=== PATIENT | female | born 1990 | race Caucasian/White ===

== ENCOUNTER 2017-01-17 09:25 | Emergency (ER) | payer BC, OTHER ==
[~2017-01-17] VITALS: Ht 170.2 cm; Wt 58.1 kg
[~2017-01-17 09:25] MED LIST: DCS100C PO; FLINTSTONE1 TAB.CHE4 PO; HYDR-3720 PO; Ibuprofen PO
--- NOTE | 2017-01-17 10:37 | ED Neck-Back Pain/Injury ---
General Chief Complaint: Head/Cervical Problems Stated Complaint: NECK AND SHOULDER PAIN Nursing Triage Note: ARRIVED VIA AMB TO ROOM 05. STATES SHE WOKE UP YESTERDAY WITH LEFT SIDED NECK PAIN AND TODAY SHE IS HAVING LEFT ARM PAIN WITH IT. HAS TAKEN TYLENOL FOR THE PAIN. STATES SHE IS 24 WEEKS GESTATION. Nursing Sepsis Screen: No Definite Risk Source of Information: Patient Exam Limitations: No Limitations History of Present Illness Time Seen by Provider: 10:00 Initial Comments Here with report of right-sided neck pain that starts at the right shoulder blade and goes to the neck and right shoulder. Started yesterday morning when she woke up. Has persisted and worsened since. Difficulty with turning her head due to the muscle tightness on the right side of her neck. She is approximately 24 weeks . Tylenol was not helping. She does not know what else to do. Denies specific recent injury but she does have 3 children that she has to lift quite a bit. Also reports that she's had some musculoskeletal pelvic pain related to recently and was considering physical therapy for that per her primary care physician. Timing/Duration: 1-2 Days Severity: Moderate Pain/Injury Location: Back, Upper Extremity, Neck Method of Injury: Unknown Associated Symptoms: muscle spasms, No fever, No weakness, No sensory/motor loss, No lower back pain, No loss of bladder control Allergies and Home Medications Allergies Coded Allergies: latex (Unverified Allergy, Unknown, RASH, 12/15/13) morphine (Verified Adverse Reaction, Unknown, N/V, 01/17/17) Home Medications No Active Prescriptions or Reported Meds Constitutional: see HPI Respiratory: no symptoms reported Cardiovascular: no symptoms reported Gastrointestinal: no symptoms reported Musculoskeletal: see HPI, back pain, muscle pain, muscle stiffness, No muscle weakness Skin: no symptoms reported Psychiatric/Neurological: No Symptoms Reported All Other Systems Reviewed Negative Unless Noted: Yes Past Jksgtbc-Emfspk-Ztfkra Hx Patient Social History Alcohol Use: Denies Use Recreational Drug Use: No Smoking Status: Never a Smoker Recent Foreign Travel: No Contact w/Someone Who Travel: No Recent Infectious Disease Expo: No Immunizations Up To Date Tetanus Booster (TDap): Less than 5yrs PED Vaccines UTD: No Surgeries HX Surgeries: Yes Surgeries: Section Respiratory Hx Respiratory Disorders: No Cardiovascular Hx Cardiac Disorders: No Neurological Hx Neurological Disorders: No Reproductive System Hx Reproductive Disorders: No Sexually Transmitted Disease: No HIV/AIDS: No Female Reproductive Disorders: Denies Genitourinary Hx Genitourinary Disorders: No Gastrointestinal Hx Gastrointestinal Disorders: No Musculoskeletal Hx Musculoskeletal Disorders: No Endocrine Hx Endocrine Disorders: No HEENT HX ENT Disorders: No Loss of Vision: Denies Cancer Hx Cancer: No Psychosocial Hx Psychiatric Problems: Yes (hx of pp depression) Behavioral Health Disorders: Anxiety, Depression Integumentary HX Skin/Integumentary Disorder: No Blood Transfusions Hx Blood Disorders: No Adverse Reaction to a Blood Tr: No Reviewed Nursing Assessment Reviewed/Agree w Nursing PMH: Yes Family Medical History Significant Family History: No Pertinent Family Hx Family Medial History: Patient reports no known family medical history. Physical Exam Vital Signs Vital Sign - Last 12Hours 01/17/17 09:35 Temp 98.0 Pulse 89 Resp 16 B/P (MAP) 130/82 Pulse Ox 100 Capillary Refill : Less Than 3 Seconds General Appearance: No Apparent Distress, WD/WN Neck: Limited Range of Motion, No Lymphadenopathy (L), No Lymphadenopathy (R), Tender Lateral, No Tender Midline Cardiovascular: Regular Rate, Rhythm, No Murmur Respiratory: Lungs Clear, Normal Breath Sounds Gastrointestinal: Non Tender, Soft, Other (gravid to the level above the umbilicus) Back: Muscle Spasm (between the right shoulder blade and the spine. Spasm extends up along the lateral aspect of the right side of the spine to the neck and to the right shoulder), No Vertebral Tenderness Extremity: Normal Inspection, Normal Range of Motion, Non Tender, Pelvis Stable , Other (bilateral senior support analyst strength equal and strong. Sensation intact bilateral hands. pulses and circulation intact in bilateral distal upper extremities.) Neurologic/Psychiatric: Alert, Oriented x3, No Motor/Sensory Deficits Skin: Normal Color, Warm/Dry Progress/Results/Core Measures Results/Orders Vital Signs/I&O Vital Sign - Last 12Hours 01/17/17 09:35 Temp 98.0 Pulse 89 Resp 16 B/P (MAP) 130/82 Pulse Ox 100 Blood Pressure Mean: 98 Progress Note : Progress Note Seen and evaluated. I did discuss the case with Dr. Adonay Martins related to physical therapy. He will be happy to see the patient in referral. Referral written after discussion with Dr. Collins, patient's primary computer systems security analyst. He agrees with referral. Patient's very happy with referral. Discharged home with return precautions. Patient and family verbalize understanding instructions and agreement with plan. Departure Impression Impression: Primary Impression: Neck sprain Qualified Codes: S13.9XXA - Sprain of joints and ligaments of unspecified parts of neck, initial encounter Additional Impression: Pelvic pain affecting Qualified Codes: O26.892 - Other specified related conditions, second trimester; R10.2 - Pelvic and perineal pain Disposition: 01 HOME, SELF-CARE Condition: Improved Departure-Patient Inst. Decision time for Depature: 10:36 Referrals: ELIZA GAO (PCP/Family) Primary Care Physician Patient Instructions: Neck Sprain (DC) Add. Discharge Instructions: All discharge instructions reviewed with patient and/or family. Voiced understanding. Go to the physical therapy building for evaluation related to the neck strain and the pelvic pain. Follow-up with your OB doctor this week for recheck and further evaluation. Return for worse pain, fever, vomiting, weakness, breathing problems or other concerns as needed. Scripts No Active Prescriptions or Reported Meds Copy Copies To 1: ADONAY MARTINS PT,ATC Copies To 2: XOCHILT COLLINS MD, TIMOTHY D MD Jan 17, 2017 10:37
[2017-01-17 10:45] VITALS: BP 130/82
== END 2017-01-17 10:45 | disposition home or self-care (01) ==
LOC: EDUNIT# 09:25 → ER 09:29
DX: O9A.212 Injury, poisoning and certain other consequences of external causes complicating pregnancy, second trimester (principal); S13.9XXA Sprain of joints and ligaments of unspecified parts of neck, initial encounter; O26.892 Other specified pregnancy related conditions, second trimester; R10.2 Pelvic and perineal pain; O99.342 Other mental disorders complicating pregnancy, second trimester; F41.9 Anxiety disorder, unspecified; F32.9 Major depressive disorder, single episode, unspecified; Z3A.24 24 weeks gestation of pregnancy; Z87.59 Personal history of other complications of pregnancy, childbirth and the puerperium; X58.XXXA Exposure to other specified factors, initial encounter
CPT/HCPCS: 99282

== ENCOUNTER 2017-04-12 12:45 | Outpatient (CLI) | payer BC, MEDICAID ==
[~2017-04-12] VITALS: Ht 170.2 cm; Wt 73.9 kg
[2017-04-12] MEDS ORDERED: URSO300C3 PO (12:58)
[2017-04-12 13:00] VITALS: BP 110/68
== END 2017-04-12 14:17 | disposition home or self-care (01) ==
LOC: PREOP 12:45
PROVIDERS: ATTEND Obstetrics & Gynecology
DX: O34.219 Maternal care for unspecified type scar from previous cesarean delivery (principal); Z3A.00 Weeks of gestation of pregnancy not specified
CPT/HCPCS: 87081

== ENCOUNTER 2017-04-15 21:15 | Outpatient (CLI) | payer BC, MEDICAID ==
[~2017-04-15] VITALS: Ht 170.2 cm; Wt 74.0 kg
[~2017-04-15 21:15] MED LIST changes: +URSO300C3 PO
[2017-04-15 21:45] VITALS: BP 122/61
[2017-04-15 21:47] LABS: BILIRUBIN,URINE NEGATIVE (NEGATIVE); KETONES,URINE 4+ (NEGATIVE); LEUKOCYTE ESTERASE ,URINE 1+ (NEGATIVE); NITRITE,URINE NEGATIVE (NEGATIVE); PH,URINE 6 (5-9); PROTEIN,URINE NEGATIVE (NEGATIVE); UROBILINOGEN,URINE NORMAL (NORMAL)
[2017-04-15 23:50] VITALS: BP 123/59
--- NOTE | 2017-04-17 08:11 | Physician Query-Final Dx ---
BOLA CONDE 04/17/17 0811: Clinic Account Progress/Dx Physician Query: Please give diagnosis Date of Service Apr 15, 2017 at 21:15 VIRY SPENCER DO 05/02/17 1053: Clinic Account Progress/Dx DIAGNOSIS: Diagnosis threatened labor at term ELTON,BOLA Apr 17, 2017 08:11 VIRY SPENCER DO May 02, 2017 10:53
[2017-04-18] MEDS ORDERED: OXYC-465 PO (07:34)
[2017-04-18] MEDS ORDERED: DOCU100C37 PO (07:34)
[2017-04-18] MEDS ORDERED: IBUP-1780 PO (07:34)
== END 2017-04-16 00:43 | disposition home or self-care (01) ==
LOC: WSo 21:15 → LDRP 21:15 → WSo 04-16 00:43
PROVIDERS: ATTEND Obstetrics & Gynecology
DX: O47.03 False labor before 37 completed weeks of gestation, third trimester (principal); O34.219 Maternal care for unspecified type scar from previous cesarean delivery; Z3A.36 36 weeks gestation of pregnancy
CPT/HCPCS: 81000; 87088; 99213

== ENCOUNTER 2018-08-21 11:26 | Emergency (ER) | payer SELFPAY ==
[~2018-08-21] VITALS: Ht 165.1 cm; Wt 59.0 kg
[~2018-08-21 11:26] MED LIST changes: +CEPH500T PO; +DOCU100C37 PO; +IBUP-1780 PO; +NITR-65 PO; +OXYC-465 PO; +PHEN-639 PO; +PREN1TAB39 PO
[2018-08-21 11:49] VITALS: BP 104/67
--- OUTSIDE RECORDS SUMMARY | 2018-08-21 12:46 | XMS REPORT | Continuity of Care Document ---
Author Author [facility] Address Unknown Phone Unavailable Allergies Active Description Code Type Severity Reaction Onset Reported/Identified Relationship to Patient Clinical Status Yes Latax OA N/A N/A 04/28/2011 Yes Latax OA 04/28/2011 Yes morphine Drug Allergy N/A N/A 08/15/2012 Yes morphine Drug Allergy 08/15/2012 Yes latex [id number] Drug Allergy Unknown RASH 12/15/2013 Yes morphine [id number] Drug Allergy Unknown N/V 01/17/2017 Yes latex [id number] Drug Allergy Mild RASH 04/12/2017 Yes morphine [id number] Drug Allergy Mild HIVES/VOMITTING 04/12/2017 Medications There is no data. Problems Date Dx Coded Attending Type Code Diagnosis Diagnosed By 04/07/2009 309.81 AN PTSD 04/07/2009 VELASQUEZ SARAVIA DO 309.81 AN PTSD 04/07/2009 309.81 AN PTSD 04/07/2009 AYAAN SANNA OGDEN 309.81 AN PTSD 04/07/2009 SKY BANKS MD 309.81 AN PTSD 04/07/2009 SKY BANKS MD 309.81 AN PTSD 04/07/2009 PRABHU CABRERA APRN A 309.81 AN PTSD 04/08/2010 300.01 AN PANIC DIS W/O AGORA 04/08/2010 309.0 AD ADJ D/O W DEPRESSED 04/08/2010 VELASQUEZ SARAVIA DO 300.01 AN PANIC DIS W/O AGORA 04/08/2010 VELASQUEZ SARAVIA DO 309.0 AD ADJ D/O W DEPRESSED 04/08/2010 300.01 AN PANIC DIS W/O AGORA 04/08/2010 309.0 AD ADJ D/O W DEPRESSED 04/08/2010 AYAAN SANNA OGDEN 300.01 AN PANIC DIS W/O AGORA 04/08/2010 AYAAN SANNA OGDEN 309.0 AD ADJ D/O W DEPRESSED 04/08/2010 SKY BANKS MD 300.01 AN PANIC DIS W/O AGORA 04/08/2010 SKY BANKS MD 309.0 AD ADJ D/O W DEPRESSED 04/08/2010 SKY BANKS MD 300.01 AN PANIC DIS W/O AGORA 04/08/2010 SKY BANKS MD 309.0 AD ADJ D/O W DEPRESSED 04/08/2010 PRABHU CABRERA APRN A 300.01 AN PANIC DIS W/O AGORA 04/08/2010 PRABHU CABRERA APRN A 309.0 AD ADJ D/O W DEPRESSED 05/18/2010 V65.11 NEW MOMMY VISIT 05/18/2010 VELASQUEZ SARAVIA DO V65.11 NEW MOMMY VISIT 05/18/2010 V65.11 NEW MOMMY VISIT 05/18/2010 [facility], [place] V65.11 NEW MOMMY VISIT 05/18/2010 SKY BANKS MD V65.11 NEW MOMMY VISIT 05/18/2010 SKY BANKS MD V65.11 NEW MOMMY VISIT 05/18/2010 PRBAHU CABRERA APRN A V65.11 NEW MOMMY VISIT 07/27/2010 300.02 AN GEN ANXIETY 07/27/2010 VELASQUEZ SARAVIA DO 300.02 AN GEN ANXIETY 07/27/2010 300.02 AN GEN ANXIETY 07/27/2010 [facility], SANNA R 300.02 AN GEN ANXIETY 07/27/2010 SKY BANKS MD 300.02 AN GEN ANXIETY 07/27/2010 SKY BANKS MD 300.02 AN GEN ANXIETY 07/27/2010 PRABHU CABRERA APRN A 300.02 AN GEN ANXIETY 03/23/2011 V25.12 ENCOUNTER FOR REMOVAL OF INTRAUTERINE CONTRACEPTIVE DEVICE 03/23/2011 VELASQUEZ SARAVIA DO V25.12 ENCOUNTER FOR REMOVAL OF INTRAUTERINE CONTRACEPTIVE DEVICE 03/23/2011 V25.12 ENCOUNTER FOR REMOVAL OF INTRAUTERINE CONTRACEPTIVE DEVICE 03/23/2011 [facility], [place] V25.12 ENCOUNTER FOR REMOVAL OF INTRAUTERINE CONTRACEPTIVE DEVICE 03/23/2011 SKY BANKS MD V25.12 ENCOUNTER FOR REMOVAL OF INTRAUTERINE CONTRACEPTIVE DEVICE 03/23/2011 SKY BANKS MD V25.12 ENCOUNTER FOR REMOVAL OF INTRAUTERINE CONTRACEPTIVE DEVICE 03/23/2011 PRABHU CABRERA APRN V25.12 ENCOUNTER FOR REMOVAL OF INTRAUTERINE CONTRACEPTIVE DEVICE 04/28/2011 462 PHARYNGITIS 04/28/2011 788.1 pain during urination (dysuria) 04/28/2011 VELASQUEZ SARAVIA DO 462 PHARYNGITIS 04/28/2011 VELASQUEZ SARAVIA DO 788.1 pain during urination (dysuria) 04/28/2011 462 PHARYNGITIS 04/28/2011 788.1 pain during urination (dysuria) 04/28/2011 [facility]IS 04/28/[facility] 788.1 pain during urination (dysuria) 04/28/2011 SKY BANKS MD 462 PHARYNGITIS 04/28/2011 SKY BANKS MD 788.1 pain during urination (dysuria) 04/28/2011 SKY BANKS MD 462 PHARYNGITIS 04/28/2011 SKY BANKS MD 788.1 pain during urination (dysuria) 04/28/2011 PRABHU CABRERA APRN 462 PHARYNGITIS 04/28/2011 PARBHU CABRERA APRN 788.1 pain during urination (dysuria) 06/01/2011 465.9 UPPER RESPIRATORY INFECTION 06/01/2011 VELASQUEZ SARAVIA DO 465.9 UPPER RESPIRATORY INFECTION 06/01/2011 465.9 UPPER RESPIRATORY INFECTION 06/01/2011 [facility] 465.9 UPPER RESPIRATORY INFECTION 06/01/2011 SKY BANKS MD 465.9 UPPER RESPIRATORY INFECTION 06/01/2011 SKY BANKS MD 465.9 UPPER RESPIRATORY INFECTION 06/01/2011 PRABHU CABRERA APRN A 465.9 UPPER RESPIRATORY INFECTION 07/21/2011 112.1 CANDIDIASIS VAGINAL 07/21/2011 599.0 URINARY TRACT INFECTION 07/21/2011 VELASQUEZ SARAVIA DO 112.1 CANDIDIASIS VAGINAL 07/21/2011 VELASQUEZ SARAVIA DO 599.0 URINARY TRACT INFECTION 07/21/2011 112.1 CANDIDIASIS VAGINAL 07/21/2011 599.0 URINARY TRACT INFECTION 07/21/2011 [facility], SANNA R 112.1 CANDIDIASIS VAGINAL 07/21/2011 [facility], [place] R 599.0 URINARY TRACT INFECTION 07/21/2011 SKY BANKS MD 112.1 CANDIDIASIS VAGINAL 07/21/2011 SKY BANKS MD 599.0 URINARY TRACT INFECTION 07/21/2011 SKY BANKS MD N 112.1 CANDIDIASIS VAGINAL 07/21/2011 SKY BANKS MD 599.0 URINARY TRACT INFECTION 07/21/2011 PRABHU CABRERA APRN A 112.1 CANDIDIASIS VAGINAL 07/21/2011 PRABHU CABRERA APRN A 599.0 URINARY TRACT INFECTION 08/05/2011 V72.42 TEST POSITIVE RESULT 08/05/2011 VELASQUEZ SARAVIA DO V72.42 TEST POSITIVE RESULT 08/05/2011 V72.42 TEST POSITIVE RESULT 08/05/2011 [facility], SAN[place] R V72.42 TEST POSITIVE RESULT 08/05/2011 SKY BANKS MD V72.42 TEST POSITIVE RESULT 08/05/2011 SKY BANKS MD V72.42 TEST POSITIVE RESULT 08/05/2011 PRABHU CABRERA APRN A V72.42 TEST POSITIVE RESULT 08/15/2012 VELASQUEZ SARAVIA DO 461.9 SINUSITIS ACUTE 08/15/2012 VELASQUEZ SARAVIA DO 784.91 POSTNASAL DRIP 08/15/2012 461.9 SINUSITIS ACUTE 08/15/2012 784.91 POSTNASAL DRIP 08/15/2012 [facility], SANNA R 461.9 SINUSITIS ACUTE 08/15/2012 [facility], [place] R 784.91 POSTNASAL DRIP 08/15/2012 SKY BANKS MD 461.9 SINUSITIS ACUTE 08/15/2012 SKY BANKS MD 784.91 POSTNASAL DRIP 08/15/2012 SKY BANKS MD 461.9 SINUSITIS ACUTE 08/15/2012 SKY BANKS MD 784.91 POSTNASAL DRIP 08/15/2012 PRABHU CABRERA APRN A 461.9 SINUSITIS ACUTE 08/15/2012 PRABHU CABRERA APRN A 784.91 POSTNASAL DRIP 01/31/2013 300.00 ANXIETY UNSPEC 01/31/2013 477.0 ALLERGIC RHINITIS DUE TO POLLEN 01/31/2013 [facility], SAN[place] R 300.00 ANXIETY UNSPEC 01/31/2013 [facility], [place] R 477.0 ALLERGIC RHINITIS DUE TO POLLEN 01/31/2013 SKY BANKS MD 300.00 ANXIETY UNSPEC 01/31/2013 SKY BANKS MD 477.0 ALLERGIC RHINITIS DUE TO POLLEN 01/31/2013 SKY BANKS MD 300.00 ANXIETY UNSPEC 01/31/2013 SKY BANKS MD 477.0 ALLERGIC RHINITIS DUE TO POLLEN 01/31/2013 PRABHU CABRERA APRN 300.00 ANXIETY UNSPEC 01/31/2013 PRABHU CABRERA APRN 477.0 ALLERGIC RHINITIS DUE TO POLLEN 03/28/2013 [facility], SANNA R 311 DEPRESSIVE DISORDER NOS 03/28/2013 SKY BANKS MD 311 DEPRESSIVE DISORDER NOS 03/28/2013 SKY BANKS MD 311 DEPRESSIVE DISORDER NOS 03/28/2013 PRABHU CABRERA APRN 311 DEPRESSIVE DISORDER NOS 05/21/2013 SKY BANKS MD N 530.81 GERD 05/21/2013 SKY BANKS MD 530.81 GERD 05/21/2013 PRABHU CABRERA APRN 530.81 GERD 12/16/2013 XOCHILT OROZCO MD Ot 079.99 VIRAL INFECTION NOS 12/16/2013 XOCHILT OROZCO MD Ot 644.03 THRT KAYLEY LABOR-ANTEPART 12/16/2013 XOCHILT OROZCO MD Ot 647.63 OTH VIRAL DIS-ANTEPARTUM 12/16/2013 XOCHILT OROZCO MD Ot 654.23 PREV DELIVERY, ANTEPARTUM COND 01/20/2014 XOCHILT OROZCO MD Ot 644.21 EARLY ONSET DELIVERY-DEL 01/20/2014 XOCHILT OROZCO MD Ot 654.21 PREV DELIVRY W/ OR W/O MENT ANT 01/20/2014 XOCHILT OROZCO MD Ot V06.1 [id number], COMBINED [ 01/20/2014 XOCHILT OROZCO MD, Ot V27.0 DELIVER-SINGLE LIVEBORN 03/12/2014 PRABHU CABRERA APRN V25.01 CONTRACEPTION - ORAL CONTRACEPTION 11/02/2014 CHAZ AYOUB MD, Ot 786.2 COUGH 11/04/2014 CHAZ AYOUB MD, Ot 786.2 01/17/2017 CHAZ AYOUB MD, Ot F32.9 MAJOR DEPRESSIVE DISORDER, SINGLE EPISOD 01/17/2017 CHAZ AYOUB MD, Ot F41.9 ANXIETY DISORDER, UNSPECIFIED 01/17/2017 CHAZ AYOUB MD, Ot O26.892 OTH RELATED CONDITIONS, SECOND 01/17/2017 CHAZ AYOUB MD, Ot O99.342 OTH MENTAL DISORDERS COMP , SEC 01/17/2017 CHAZ AYOUB MD, Ot O99.89 OTH DISEASES AND CONDITIONS COMPL PREG/C 01/17/2017 CHAZ AYOUB MD, Ot O9A.212 INJ/POISN/OTH CONSEQ OF EXTRN CAUSES COM 01/17/2017 CHAZ AYOUB MD, Ot R10.2 PELVIC AND PERINEAL PAIN 01/17/2017 CHAZ AYOUB MD, Ot S13.9XXA SPRAIN OF JOINTS AND LIGAMENTS OF UNSP P 01/17/2017 CHAZ AYOUB MD Ot X58.XXXA EXPOSURE TO OTHER SPECIFIED FACTORS, INI 01/17/2017 CHAZ AYOUB MD, Ot Z3A.24 24 WEEKS GESTATION OF 01/17/2017 CHAZ AYOUB MD, Ot Z87.59 PERSONAL HISTORY OF COMP OF PREG, CHLDBR 04/12/2017 XOCHILT OROZCO MD Ot O34.219 MATERNAL CARE FOR UNSP TYPE SCAR FROM NV 04/12/2017 XOCHILT OROZCO MD, Ot Z3A.00 WEEKS OF GESTATION OF NOT SPEC 04/13/2017 XOCHILT OROZCO MD, Ot O34.219 MATERNAL CARE FOR UNSP TYPE SCAR FROM NV 04/13/2017 XOCHILT OROZCO MD, Ot Z3A.00 WEEKS OF GESTATION OF NOT SPEC 04/16/2017 VIRY SPENCER DO Ot O34.219 MATERNAL CARE FOR UNSP TYPE SCAR FROM NV 04/16/2017 VIRY SPENCER DO Ot O47.03 FALSE LABOR BEFORE 37 COMPLETED WEEKS OF 04/16/2017 VIRY SPENCER DO Ot Z3A.36 36 WEEKS GESTATION OF 04/18/2017 XOCHILT OROZCO MD, Ot O26.62 LIVER AND BILIARY TRACT DISORDERS IN CHI 04/18/2017 XOCHILT OROZCO MD, Ot O34.211 MATERN CARE FOR LOW TRANSVERSE SCAR FROM 04/18/2017 XOCHILT OROZCO MD, Ot O60.23X0 TERM DELIVERY W LABOR, THIRD TRI 04/18/2017 XOCHILT OROZCO MD, Ot Z23 ENCOUNTER FOR IMMUNIZATION 04/18/2017 XOCHILT OROZCO MD, Ot Z37.0 SINGLE LIVE 04/18/2017 XOCHILT OROZCO MD, Ot Z3A.37 37 WEEKS GESTATION OF 05/03/2017 VIRY SPENCER DO Ot O34.219 MATERNAL CARE FOR UNSP TYPE SCAR FROM NV 05/03/2017 VIRY SPENCER DO Ot O47.03 FALSE LABOR BEFORE 37 COMPLETED WEEKS OF 05/03/2017 VIRY SPENCER DO Ot Z3A.36 36 WEEKS GESTATION OF 02/04/2018 CHAZ AYOUB MD, Ot F32.9 MAJOR DEPRESSIVE DISORDER, SINGLE EPISOD 02/04/2018 CHAZ AYOUB MD, Ot F41.9 ANXIETY DISORDER, UNSPECIFIED 02/04/2018 CHAZ AYOUB MD, Ot N39.0 URINARY TRACT INFECTION, SITE NOT SPECIF 02/04/2018 CHAZ AYOUB MD Ot R30.0 DYSURIA 02/04/2018 CHAZ AYOUB MD Ot Z88.6 ALLERGY STATUS TO ANALGESIC AGENT STATUS 02/04/2018 CHAZ AYOUB MD Ot Z91.040 LATEX ALLERGY STATUS 02/04/2018 CHAZ AYOUB MD, Ot Z98.890 OTHER SPECIFIED POSTPROCEDURAL STATES 02/06/2018 CHAZ AYOUB MD, Ot F32.9 MAJOR DEPRESSIVE DISORDER, SINGLE EPISOD 02/06/2018 CHAZ AYOUB MD, Ot F41.9 ANXIETY DISORDER, UNSPECIFIED 02/06/2018 CHAZ AYOUB MD Ot N39.0 URINARY TRACT INFECTION, SITE NOT SPECIF 02/06/2018 CHAZ AYOUB MD, Ot R30.0 DYSURIA 02/06/2018 CHAZ AYOUB MD Ot Z88.6 ALLERGY STATUS TO ANALGESIC AGENT STATUS 02/06/2018 CHAZ AYOUB MD Ot Z91.040 LATEX ALLERGY STATUS 02/06/2018 CHAZ AYOUB MD Ot Z98.890 OTHER SPECIFIED POSTPROCEDURAL STATES Procedures Code Description [place] [address] PSYCH DIAGNOSTIC EVALUATION 03/28/2013 17212 H PYLORI (IN-HOUSE) 05/21/2013 72.9 INSTRUMENT DELIVERY NOS 01/17/2014 74.1 LOW CERVICAL 01/17/2014 83205 IUD REMOVAL 03/12/2014 [id number] EXTRACTION OF POC, LOW CERVICAL, OPEN AP 04/18/2017 Results Test Result Range Methicillin resistant Staphylococcus aureus (MRSA) screening culture - 13:00 Methicillin resistant Staphylococcus aureus (MRSA) screening culture NEG NRG Complete urinalysis with reflex to culture - 04/15/17 21:30 Urine color determination YELLOW NRG Urine clarity determination SLIGHTLY CLOUDY NRG Urine pH measurement by test strip 6 5-9 Specific gravity of urine by test strip 1.015 1.016- 1.022 Urine protein assay by test strip, semi-quantitative NEGATIVE NEGATIVE Urine glucose detection by automated test strip NEGATIVE NEGATIVE Erythrocytes detection in urine sediment by light microscopy NEGATIVE NEGATIVE Urine ketones detection by automated test strip 4+ NEGATIVE Urine nitrite detection by test strip NEGATIVE NEGATIVE Urine total bilirubin detection by test strip NEGATIVE NEGATIVE Urine urobilinogen measurement by automated test strip (mass/volume) NORMAL NORMAL Urine leukocyte esterase detection by dipstick 1+ NEGATIVE Automated urine sediment erythrocyte count by microscopy (number/high power field) NONE NRG Automated urine sediment leukocyte count by microscopy (number/high power field ) [HPF] NRG Bacteria detection in urine sediment by light microscopy MODERATE NRG Squamous epithelial cells detection in urine sediment by light microscopy 10-25 NRG Crystals detection in urine sediment by light microscopy NONE NRG Casts detection in urine sediment by light microscopy NONE NRG Mucus detection in urine sediment by light microscopy SMALL NRG Complete urinalysis with reflex to culture YES NRG Bacterial urine culture - 04/15/17 21:30 URINE CULTURE RESULTS <10,000/ML NRG Complete blood count (CBC) with automated white blood cell (WBC) differential - 04/17/17 11:24 Blood leukocytes automated count (number/volume) 14.2 10*3/uL 4.3-11.0 Blood erythrocytes automated count (number/volume) 4.09 10*6/uL 4.35-5.85 Venous blood hemoglobin measurement (mass/volume) 10.7 g/dL 11.5-16.0 Blood hematocrit (volume fraction) 32 % 35-52 Automated erythrocyte mean corpuscular volume 79 [foz_us] 80-99 Automated erythrocyte mean corpuscular hemoglobin (mass per erythrocyte) 26 pg 25-34 Automated erythrocyte mean corpuscular hemoglobin concentration measurement ( mass/volume) 33 g/dL 32-36 Automated erythrocyte distribution width ratio 12.7 % 10.0-14.5 Automated blood platelet count (count/volume) 286 10*3/uL 130-400 Automated blood platelet mean volume measurement 10.9 [foz_us] 7.4-10.4 Automated blood neutrophils/100 leukocytes 74 % 42-75 Automated blood lymphocytes/100 leukocytes 19 % 12-44 Blood monocytes/100 leukocytes 6 % 0-12 Automated blood eosinophils/100 leukocytes 1 % 0-10 Automated blood basophils/100 leukocytes 0 % 0-10 Blood neutrophils automated count (number/volume) 10.5 10*3 1.8-7.8 Blood lymphocytes automated count (number/volume) 2.7 10*3 1.0-4.0 Blood monocytes automated count (number/volume) 0.8 10*3 0.0-1.0 Automated eosinophil count 0.1 10*3/uL 0.0-0.3 Automated blood basophil count (count/volume) 0.0 10*3/uL 0.0-0.1 Blood type T Indirect antibody screen panel - 04/17/17 11:24 ABO+Rh group OP NRG Transfusion band number [id number] [facility] Blood group antibody screen NEGATIVE NR Complete urinalysis with reflex to culture - 02/03/18 00:00 Urine color determination YELLOW NRG Urine clarity determination CLEAR NRG Urine pH measurement by test strip 6.5 5-9 Specific gravity of urine by test strip 1.020 1.016- 1.022 Urine protein assay by test strip, semi-quantitative 1+ NEGATIVE Urine glucose detection by automated test strip NEGATIVE NEGATIVE Erythrocytes detection in urine sediment by light microscopy 1+ NEGATIVE Urine ketones detection by automated test strip NEGATIVE NEGATIVE Urine nitrite detection by test strip NEGATIVE NEGATIVE Urine total bilirubin detection by test strip NEGATIVE NEGATIVE Urine urobilinogen measurement by automated test strip (mass/volume) NORMAL NORMAL Urine leukocyte esterase detection by dipstick 2+ NEGATIVE Automated urine sediment erythrocyte count by microscopy (number/high power field) [HPF] NRG Automated urine sediment leukocyte count by microscopy (number/high power field ) [HPF] NRG Bacteria detection in urine sediment by light microscopy FEW NRG Squamous epithelial cells detection in urine sediment by light microscopy 2-5 NRG Crystals detection in urine sediment by light microscopy NONE NRG Casts detection in urine sediment by light microscopy NONE NRG Mucus detection in urine sediment by light microscopy SMALL NRG Complete urinalysis with reflex to culture YES NRG Bacterial urine culture - 02/03/18 00:00 Bacterial urine culture SEE COMMEN NRG COLONY COUNT . NRG Encounters ACCT No. Visit Date/Time Discharge Status Pt. Type Provider Facility Loc./Unit Complaint [id number] 03/12/2014 14:33:00 03/12/2014 23:59:59 CLS Outpatient PRABHU CABRERA APRN [id number] 05/21/2013 16:09:00 05/21/2013 23:59:59 CLS Outpatient SKY BANKS MD [id number] 05/21/2013 16:09:00 05/21/2013 23:59:59 CLS Outpatient SKY BANKS MD [id number] 03/28/2013 09:56:00 03/28/2013 23:59:59 CLS Outpatient SANNA LACKEY [id number] 08/15/2012 15:24:00 08/15/2012 23:59:59 CLS Outpatient VELASQUEZ SARAVIA DO [id number] 06/11/2012 16:12:00 06/11/2012 23:59:59 CLS Outpatient [id number] 01/31/2013 16:15:00 Document Registration [id number] 02/03/2018 23:39:00 02/04/2018 00:57:00 DIS Daniela AYOUB MD, CHAZ Morelos [facility] ER FEELS LIKE SHE IS PEEING GLASS [id number] 04/17/2017 11:00:00 04/18/2017 09:40:00 DIS Inpatient XOCHILT OROZCO MD [facility] LDRP PREVIOUS C-SCETION , CHOLESTATIS [id number] 04/15/2017 21:15:00 04/16/2017 00:43:00 DIS Outpatient VIRY SPENCER DO [facility] WSo CONTRACTIONS [id number] 04/12/2017 12:45:00 04/12/2017 14:17:00 DIS Outpatient XOCHILT OROZCO MD [facility] PREOP REPEAT SECTION [id number] 01/27/2017 11:03:00 01/27/2017 23:59:59 CLS Preadmit XOCHILT OROZCO MD [facility] REHAB RT SHLDR NECK PAIN; PELVIC PAIN IN PREG 24 WEEKS [id number] 01/17/2017 09:29:00 01/17/2017 10:45:00 DIS Emergency CHAZ AYOUB MD [facility] ER NECK AND SHOULDER PAIN [id number] 11/02/2014 22:28:00 11/02/2014 22:44:00 DIS Emergency CHAZ AYOUB MD [facility] ER COUGH [id number] 01/17/2014 21:50:00 01/20/2014 18:45:00 DIS Inpatient XOCHILT OROZCO MD [facility] LDRP CTXS/LABOR [id number] 12/15/2013 16:37:00 12/16/2013 07:30:00 DIS Inpatient XOCHILT OROZCO MD [facility] LDRP CONTRACTIONS [id number] 01/14/2013 18:40:00 01/14/2013 23:59:59 CLS Outpatient
== END 2018-08-21 12:40 | disposition left against medical advice (07) ==
LOC: EDUNIT# 11:26 → ER 11:27
DX: T62.91XA Toxic effect of unspecified noxious substance eaten as food, accidental (unintentional), initial encounter (principal)
CPT/HCPCS: 99281

== ENCOUNTER 2018-11-15 15:21 | Outpatient (CLI) | payer SELFPAY ==
[~2018-11-15] VITALS: Ht 165.1 cm; Wt 59.0 kg
[2018-11-16] MEDS ORDERED: IBUP-844 PO (10:22)
[2018-11-16] MEDS ORDERED: ACET-77 PO (10:22)
[2018-11-16] MEDS ORDERED: OXC5T PO (10:22)
== END 2018-11-15 16:20 | disposition home or self-care (01) ==
LOC: PREOP 15:21
PROVIDERS: ATTEND Obstetrics & Gynecology
DX: Z01.818 Encounter for other preprocedural examination (principal)

== ENCOUNTER 2018-11-16 07:31 | Day surgery (SDC) | payer MEDICAID, OTHER ==
[~2018-11-16] VITALS: Ht 165.1 cm; Wt 63.7 kg
[2018-11-16] VITALS (14 sets, daily range): BP systolic 96–118; BP diastolic 49–64
[2018-11-16 07:56] LABS: BASOPHILS % (AUTO) 0 % (0-10); EOSINOPHILS # (AUTO) 0.1 10^3/uL (0.0-0.3); EOSINOPHILS % (AUTO) 2 % (0-10); HEMATOCRIT 39 % (35-52); HEMOGLOBIN 12.9 G/DL (11.5-16.0); LYMPHOCYTES # (AUTO) 2.9 X 10^3 (1.0-4.0); LYMPHOCYTES % (AUTO) 41 % (12-44); MEAN CORPUSCULAR HEMOGLOBIN 29 PG (25-34); MEAN CORPUSCULAR HGB CONC 34 G/DL (32-36); MEAN CORPUSCULAR VOLUME 87 FL (80-99); MEAN PLATELET VOLUME 10.1 FL (7.4-10.4); MONOCYTES # (AUTO) 0.5 X 10^3 (0.0-1.0); MONOCYTES % (AUTO) 7 % (0-12); NEUTROPHILS # (AUTO) 3.5 X 10^3 (1.8-7.8); NEUTROPHILS % (AUTO) 49 % (42-75); PLATELET COUNT 236 10^3/uL (130-400); WHITE BLOOD COUNT 7.1 10^3/uL (4.3-11.0)
[2018-11-16] MEDS ORDERED: DEXAMETHASONE 10 MG/ML (DECADRON) 1 ML VIAL ONE (08:14)
[2018-11-16] MEDS ORDERED: fentaNYL INJECTION 100 MCG/2 ML AMP ONE (08:14)
[2018-11-16] MEDS ORDERED: ROCURONIUM 10 MG/ML 5 ML SYRINGE IV ONE (08:14)
[2018-11-16] MEDS ORDERED: MIDAZOLAM 2 MG/2 ML (VERSED) VIAL ONE (08:14)
[2018-11-16] MEDS ORDERED: LIDOCAINE PF 2% 5 ML (XYLOCAINE) VIAL ONE ×2 (08:14→09:10)
[2018-11-16] MEDS ORDERED: ONDANSETRON 4 MG/2 ML (SDV) Z0FRAN ONE (08:14)
[2018-11-16] MEDS ORDERED: proPOfol 200 MG/20 ML (DIPRIVAN) VIAL IV ONE (08:14)
[2018-11-16] MEDS ORDERED: SEVOFLURANE (ULTANE) 15 ML INHAL SOLN ONE (08:14)
[2018-11-16] MEDS ORDERED: BUP/EPI 0.25% 1:200,000 (MARCAINE) 10 ML VIAL IJ ONE (08:18)
[2018-11-16] MEDS ORDERED: BUPIVACAINE 0.25% 30 ML (SENSORCAINE) VIAL ONE (08:26)
[2018-11-16] MEDS ORDERED: PROPOFOL INJECTION 50 ML IV ONE ×2 (08:29→09:43)
[2018-11-16] MEDS ORDERED: ONDANSETRON 4 MG/2 ML (SDV) Z0FRAN IV ONE (08:30)
[2018-11-16] MEDS ORDERED: KETAMINE/NaCl 50 MG/5 ML SYRINGE ONE (08:30)
[2018-11-16] MEDS ORDERED: SCOPOLAMINE 1.5 MG (TRANSDERM-SCOP) PATCH TOP ONE (08:30)
[2018-11-16] MEDS ORDERED: FAMOTIDINE 20MG/2ML IV (PEPCID) IV ONE (08:30)
--- NOTE | 2018-11-16 08:43 | Progress Note-Pre Operative ---
Pre-Operative Progress Note H&P Reviewed The H&P was reviewed, patient examined and no changes noted. Date Seen by Provider: Nov 16, 2018 Time Seen by Provider: 08:30 Date H&P Reviewed: Nov 15, 2018 Time H&P Reviewed: 20:00 Pre-Operative Diagnosis: ectopic , missed ab VIRY SPENCER DO Nov 16, 2018 08:43
[2018-11-16] MEDS ORDERED: ceFAZolin INJECTION 1,000 MG ONE (08:46)
[2018-11-16] MEDS ORDERED: LACTATED RINGERS 1,000 ML IV PRN (08:48)
[2018-11-16] MEDS ORDERED: ceFAZolin INJECTION 1,000 MG in WATER (STERILE) FOR INJECTION 10 ML IV ONE (09:00)
[2018-11-16] MEDS ORDERED: HYDROmorphone 2 MG/ML VIAL (DILAUDID) ONE (09:05)
[2018-11-16] MEDS ORDERED: GLYCOPYRROLATE 0.2 MG/ML (ROBINUL) 2 ML VIAL ONE ×2 (09:12→09:46)
[2018-11-16] MEDS ORDERED: NEOSTIGMINE 1 MG/ML 5 ML SYRINGE ONE (09:46)
--- NOTE | 2018-11-16 10:13 | Operative Report ---
Operative Report Date of Procedure/Surgery Nov 16, 2018 Surgeon (s) VIRY SPENCER DO Surgical Technologist (s): Shannan Jesus, MS III Post-Operative Diagnosis right ovarian ectopic, bilateral tubal clubbing, miscarriage with pseudodecidual sac, omental adhesions Procedure Performed laparoscopy with right salpingoophorectomy, left salpingectomy, lysis of omental adhesions, dilation and curettage. Description of Procedure Anesthesia Type: General Estimated blood loss (mL): minimal Specimen(s) collected/removed right tube and ovary, left tube, endometrial curettings Description of the Procedure With informed consent the patient was taken to the operating room where general anesthesia was found to be adequate. She was then prepped and draped in the usual sterile fashion in the dorsolithotomy position. A catheterh was placed in the bladder, and removed after the procedure. A speculum was placed in the vagina and the cervix grasped with a tenaculum. A Aiyana manipulator was placed in the cervix. Attention was now turned to the abdomen. The umbilicus was injected with 0;25% Marcaine and then a 5 mm skin incision was placed. Intraabdominal placement was confirmed with the saline drop test and a drop in pressure. The abdomen was now insufflated with CO2 gas to a maximum pressure of 15 mmHg. A 5 mm trocar was placed under direct visualization with the Optiview and the below findings were found. I then placed two additional trocars in the left lower quadrant lateral to the rectus muscles and avoiding the inferior epigastric vessels. there was an omental adhesion from the previous section. It was cauterized to allow visualization of the pelvis. There were also extensive vesicouterine adhesions but these were not treated. The right tube appeared clubbed, but the ectopic was in the ovary rather than the tube as previously thought. Due to this, the decision was made to remove the right tube and ovary. The ovary was bleeding. I grasped the right infundibulopelvic ligament with the Harmonic scalpel and then the cornu was grasped with the Harmonic scalpel, cauterizing and ligating. The left tube was noted to be clubbed with hydrosalpinx and, due to risk of additional ectopic, and completion of fertility, the left tube was removed. It was grasped at the cornu and then cauterized and the mesosalpinx was cauterized and cut. The left tube was now removed. I now extended the left lower incision to allow insertion of a 10 mm trocar and an Endobag was inserted and the left tube, right tube and ovary were sent for pathology. The pelvis was now irrigated and there was good hemostasis. The gas and the instruments were removed from the abdomen. Attention was now turned to the vagina. The cervix was gently dilated with Noble dilators. I then did a dilation and curettage. On the ultrasound there appeared to be a possible gestational sac and a pseudosac. The tissue appeared to be trophoblastic and was sent for pathology. There was minimal bleeding. The instruments were now removed. The fascial incision in the left lower quadrant was closed with 0 vicryl in a figure of 8 fashion and then all the skin incisions closed with 4-0 Vicryl in a subcuticular fashion. Dermabond and bandages were placed. The patient was now awakened and taken to recovery in a stable condition. Findings of the Procedure intrauterine products of conception consistent with missed , right ovarian ectopic. Hydrosalpinx and clubbing of the left tube. Allergies and Home Medications Allergies Coded Allergies: latex (Unverified Allergy, Mild, RASH, 11/15/18) morphine (Verified Allergy, Mild, HIVES/VOMITTING/TORRES, 11/15/18) Home Medications Acetaminophen 500 Mg Tablet, 1,000 MG PO Q8H PRN for PAIN-MILD Prescribed by: VIRY SPENCER on 11/16/18 1022 Ibuprofen 600 Mg Tablet, 600 MG PO Q6HR Prescribed by: VIRY SPENCER on 11/16/18 1022 Oxycodone Hcl 5 Mg Tab, 5 MG PO Q4H PRN for PAIN-SEVERE Prescribed by: VIRY SPENCER on 11/16/18 1022 Patient Home Medication List Home Medication List Reviewed: VIRY Dailey DO Nov 16, 2018 10:13
[2018-11-16] MEDS ORDERED: ACETAMINOPHEN 500 MG TAB (TYLENOL) PO PRN (10:15)
[2018-11-16] MEDS ORDERED: KETOROLAC 30 MG/ML VIAL IVP PRN (10:15)
[2018-11-16] MEDS ORDERED: OXC5T PO (10:22)
[2018-11-16] MEDS ORDERED: ACET-77 PO (10:22)
[2018-11-16] MEDS ORDERED: IBUP-844 PO (10:22)
--- NOTE | 2018-11-16 10:25 | Discharge Inst-Women's Service ---
Discharge Inst-Women's Serv Depart Medication/Instructions New, Converted or Re-Newed RX: RX on Chart Instructions nothing in the vagina until cleared by physician No driving for 48 hours expect light bleeding vs spotting for up to two weeks Final Diagnosis right tubal/ovarian ectopic, pseudosac of uterus/miscarriage Consults/Follow Up Additional Follow Up: Yes (1-[address] Rayo) Activity Activity: Activity as Tolerated Driving Instructions: No Driving for 24 Hours (48 hours please) NO SMOKING: NO SMOKING Nothing Inside Vagina: No Douching, No [place], No Tampons Diet Discharge Diet: No Restrictions Symptoms to Report to : Swelling Increased, Bleeding Excessive, Pain Increased, Fever Over 101 Degrees F, Vaginal Bleeding Increase, Cramps in Feet or Legs, Pain/Pressure in Shoulder, Vaginal Discharge Foul, Nausea/Vomiting For Any Problems or Questions: Contact Your Physician Skin/Wound Care Infection Signs and Symptoms: Increased Redness, Foul Odor of Wound, Increased Drainage, Skin Itchy or Has a Rash, Increased Swelling, Temperature Above 101 F Operative Area Clean and Dry: Keep Incision Clean/Dry, You May Remove Bandage (may remove the bandages in 3 days, or sooner if soiled or wet) Stitches/Kelliher/Dermabond: Dermabond Bathing Instructions: VIRY Serna DO Nov 16, 2018 10:25
[2018-11-16] MEDS ORDERED: HYDROmorphone 2 MG/ML VIAL (DILAUDID) IV ONE (10:30)
[2018-11-16] MEDS ORDERED: DOXYCYCLINE 100 MG (VIBRAMYCIN) TABLET PO SCH (10:30)
[2018-11-16] MEDS ORDERED: ONDANSETRON 4 MG/2 ML (SDV) Z0FRAN IVP PRN (10:30)
[2018-11-16] MEDS ORDERED: AZITHROMYCIN INJECTION 500 MG in NS (IVPB) 250 ML IV SCH (10:30)
[2018-11-16] MEDS: HYDROmorphone 2 MG/ML VIAL (DILAUDID) ONE ×3 (10:38→12:48)
--- NOTE | 2018-11-16 11:01 | Anesthesia-General Post-Op ---
General Patient Condition Mental Status/LOC: Same as Preop Cardiovascular: Satisfactory Nausea/Vomiting: Absent Respiratory: Satisfactory Pain: Controlled Complications: Absent Post Op Complications Complications None Follow Up Care/Instructions Patient Instructions None needed. Anesthesia/Patient Condition Patient Condition Patient is doing well, no complaints, stable vital signs, no apparent adverse anesthesia problems. No complications reported per nursing. NELSON CHAVES CRNA Nov 16, 2018 11:01
[2018-11-16] MEDS ORDERED: IBUPROFEN 600 MG (MOTRIN) TAB PO SCH (12:00)
--- OUTSIDE RECORDS SUMMARY | 2018-11-16 13:04 | XMS REPORT ---
Author Author Migration, Doctor Organization [facility] Address Unknown Phone Unavailable Care Team Providers Care Body Corporate Manager Name Role Phone Migration, Doctor Unavailable Unavailable PROBLEMS Unknown Problems ALLERGIES No Information ENCOUNTERS Encounter Location Date Diagnosis [facility] [address] [place] [address] October, Screening for tuberculosis Z11.1 [facility] [address] [place] [address] October, Visit for TB skin test Z11.1 [facility] [address] [place] [address] Aug, Acute non-recurrent frontal sinusitis J01.10 [facility] [id number] [place] [id number] October, Dental examination Z01.20 [facility] [id number] [place] [address] Dec, Lumbar pain 724.2 [facility] [id number] [place] [address] Sep, [facility] [id number] [place] [address] Sep, [facility] [id number] [place] [address] Mar, [facility] [id number] [place] [address] Mar, [facility] [id number] [place] [address] Jun, [facility] [id number] [place] [address] Jun, [facility] [id number] [place] [address] May, [facility] [address] [id number] [place] [address] May, [facility] [place] [facility] [address] [id number] [place] [address] May, [facility] [place] [facility] [address] [id number] [place] [address] May, [facility] [place] [facility] [address] [id number] [place] [address] May, [facility] [place] [facility] [address] [id number] [place] [address] May, [facility] [place] [facility] [address] [id number] [place] [address] Apr, [facility] [place] [facility] [address] [id number] [place] [address] Apr, [facility] [place] [facility] [address] [id number] [place] [address] Mar, [facility] [place] [facility] [address] [id number] [place] [address] Mar, [facility] [place] [facility] [address] [id number] [place] [address] Jan, [facility] [place] [facility] [address] [id number] [place] [address] Jan, [facility] [place] [facility] [address] [id number], [place] [address] Aug, [facility] [place] [facility] [address] [id number] [place] [address] Aug, [facility] [place] [facility] [address] [id number] [place] [address] May, [facility] [place] [facility] [address] [id number] [place] [address] May, [facility] [place] [facility] [address] [id number], [place] [address] Jul, [facility] [address] [facility] [id number], [place] [address] Jul, [facility] [address] [facility] [id number], [place] [address] Jul, [facility] [address], [place] [address] Jul, [facility] [address] [facility] [id number], [place] [address] Jul, [facility] [address], [place] [address] May, [facility] [id number] [address] Apr, [facility] [address], [place] [address] Apr, [facility] [address], [place] [address] Apr, [facility] [address], [place] [address] Mar, [facility] [address], [place] [address] Mar, [facility] [address], [place] [address] May, [facility] [address], [place] [address] May, [facility] [id number], [place] [address] May, IMMUNIZATIONS No Known Immunizations SOCIAL HISTORY Never Assessed REASON FOR VISIT [place] [place] VITAL SIGNS MEDICATIONS Unknown Medications RESULTS No Results PROCEDURES No Known procedures INSTRUCTIONS MEDICATIONS ADMINISTERED No Known Medications MEDICAL (GENERAL) HISTORY Type Description Date Surgical History tonsillectomy Surgical History section Hospitalization History past surgery
--- OUTSIDE RECORDS SUMMARY | 2018-11-16 13:04 | XMS REPORT ---
Author Author Migration, Doctor Organization [facility] Address Unknown Phone Unavailable Care Team Providers Care Office Automation Clerk Name Role Phone Migration, Doctor Unavailable Unavailable PROBLEMS Type Condition ICD9-CM Code HSN80-JJ Code Onset Dates Condition Status SNOMED Code Problem Postnasal drip 784.91 Active 88765676 Problem Urinary tract infection, site not specified 599.0 Active 31158298 Problem Esophageal reflux 530.81 Active 412685925 Problem Candidiasis of vulva and vagina 112.1 Active 45378180 Problem examination or test, positive result V72.42 Active 101065808 Problem Lumbar pain 724.2 Active 012814929 Problem General counseling for prescription of oral contraceptives V25.01 Active 265657037947032 Problem Acute sinusitis, unspecified 461.9 Active 48650076 Problem Allergic rhinitis due to pollen 477.0 Active 54000201 Problem Depressive disorder, not elsewhere classified 311 Active 86671216 Problem Anxiety state, unspecified 300.00 Active 305576794 ALLERGIES No Information ENCOUNTERS Encounter Location Date Diagnosis [address] [place] [address] Aug, [facility] [address] [place] [id number] October, Dental examination Z01.20 [facility] [id number] [place] [address] Dec, Lumbar pain 724.2 [facility] [id number] [place] [address] Sep, [facility] [id number] [place] [address] Sep, [facility] [id number] [place] [address] Mar, [facility] [id number] [place] [address] Mar, [facility] [address] [id number] [place] [address] Jun, [facility] [place] [facility] [address] [id number] [place] [address] Jun, [facility] [place] [facility] [address] [id number] [place] [address] May, [facility] [place] [facility] [address] [id number] [place] [address] May, [facility] [place] [facility] [address] [id number] [place] [address] May, [facility] [place] [facility] [address] [id number] [place] [address] May, [facility] [place] [facility] [address] [id number] [place] [address] May, [facility] [place] [facility] [address] [id number] [place] [address] May, [facility] [place] [facility] [address] [id number] [place] [address] Apr, [facility] [place] [facility] [address] [id number] [place] [address] Apr, [facility] [place] [facility] [address] [id number] [address] Mar, [facility] [place] [facility] [address] [id number] [place] [address] Mar, [facility] [place] [facility] [address] [id number] [place] [address] Jan, [facility] [place] [facility] [address] [id number] [place] [address] Jan, [facility] [place] [facility] [address] [id number] [place] [address] Aug, [facility] [place] [facility] [address] [id number] [place] [address] Aug, [facility] [address] [id number] [place] [address] May, [facility] [place] [facility] [address] [id number] [place] [address] May, [facility] [place] [facility] [address] [id number] [place] [address] 24 Jul, 2011 [facility] [place] [facility] [address] [id number] [place] [address] Jul, [facility] [place] [facility] [address] [id number] [place] [address] Jul, [facility] [place] [facility] [address] [id number] [place] [address] Jul, [facility] [place] [facility] [address] [facility] [id number] [place] [address] Jul, [facility] [address] [id number] [place] [address] May, [facility] [place] [facility] [address] [id number] [place] [address] Apr, [facility] [place] [facility] [address] [facility] [id number] [place] [address] Apr, [facility] [place] [facility] [address] [id number] [place] [address] Apr, [facility] [place] [facility] [address] [id number] [place] [address] Mar, [facility] [place] [facility] [address] [id number] [place] [address] Mar, [facility] [place] [facility] [address] [id number] [place] [address] May, [facility] [place] [facility] [address] [id number] [place] [address] May, [facility] [address] [facility] [id number] [place] [address] May, IMMUNIZATIONS No Known Immunizations SOCIAL HISTORY Never Assessed REASON FOR VISIT E[place] [place]AN OF CARE VITAL SIGNS MEDICATIONS Unknown Medications RESULTS No Results PROCEDURES No Known procedures INSTRUCTIONS MEDICATIONS ADMINISTERED No Known Medications MEDICAL (GENERAL) HISTORY Type Description Date Surgical History tonsillectomy Surgical History section Hospitalization History past surgery
--- OUTSIDE RECORDS SUMMARY | 2018-11-16 13:05 | XMS REPORT | Continuity of Care Document ---
Author Organization Unknown Address Unknown Allergies Active Description Code Type Severity Reaction Onset Reported/Identified Relationship to Patient Clinical Status Yes Latax OA N/A N/A 04/28/2011 Yes Latax OA 04/28/2011 Yes morphine Drug Allergy N/A N/A 08/15/2012 Yes morphine Drug Allergy 08/15/2012 Yes latex [id number] Drug Allergy Unknown RASH 12/15/2013 Yes morphine [id number] Drug Allergy Unknown N/V 01/17/2017 Yes latex [id number] Drug Allergy Mild RASH 04/12/2017 Yes morphine [id number] Drug Allergy Mild HIVES/VOMITTING 04/12/2017 Medications There is no data. Problems Date Dx Coded Attending Type Code Diagnosis Diagnosed By 04/07/2009 309.81 AN PTSD 04/07/2009 VELASQUEZ SARAVIA DO 309.81 AN PTSD 04/07/2009 309.81 AN [facility] 309.81 AN PTSD 04/07/2009 SKY BANKS MD [...] AN PANIC DIS W/O AGORA 04/08/2010 [facility] 309.0 AD ADJ D/O W DEPRESSED 04/08/2010 [...] VISIT 05/18/2010 V65.11 [facility] NEW [facility]OMMY VISIT 05/18/2010 SKY BANKS MD V65.11 NEW MOMMY VISIT 05/18/2010 SKY BANKS MD V65.11 NEW MOMMY VISIT 05/18/2010 PRABHU CABRERA APRN A V65.11 NEW MOMMY VISIT 07/27/2010 300.02 AN GEN ANXIETY 07/27/2010 VELASQUEZ SARAVIA DO 300.02 AN GEN ANXIETY 07/27/2010 300.02 AN GEN ANXIETY 07/27/2010 [facility] 300.02 AN GEN ANXIETY 07/27/2010 SKY BANKS MD 300.02 AN GEN ANXIETY 07/27/2010 SKY BANKS MD 300.02 AN GEN ANXIETY 07/27/2010 PRABHU CABRERA APRN A 300.02 AN GEN ANXIETY 03/23/2011 V25.12 ENCOUNTER FOR REMOVAL OF INTRAUTERINE CONTRACEPTIVE DEVICE 03/23/2011 VELASQUEZ SARAVIA DO V25.12 ENCOUNTER FOR REMOVAL OF INTRAUTERINE CONTRACEPTIVE DEVICE 03/23/2011 V25.12 ENCOUNTER FOR REMOVAL OF INTRAUTERINE CONTRACEPTIVE DEVICE 03/23/2011 [facility]25.12 ENCOUNTER FOR REMOVAL OF INTRAUTERINE CONTRACEPTIVE DEVICE 03/23/2011 SKY BANKS MD V25.12 ENCOUNTER FOR REMOVAL OF INTRAUTERINE CONTRACEPTIVE DEVICE 03/23/2011 SKY BANKS MD V25.12 ENCOUNTER FOR REMOVAL OF INTRAUTERINE CONTRACEPTIVE DEVICE 03/23/2011 PRABHU CABRERA APRN V25.12 ENCOUNTER FOR REMOVAL OF INTRAUTERINE CONTRACEPTIVE DEVICE 04/28/2011 462 PHARYNGITIS 04/28/2011 788.1 pain during urination (dysuria) 04/28/2011 VELASQUEZ SARAVIA DO K 462 PHARYNGITIS 04/28/2011 VELASQUEZ SARAVIA DO 788.1 pain during urination (dysuria) 04/28/2011 462 PHARYNGITIS 04/28/2011 788.1 pain during urination (dysuria) 04/28/2011 [facility] 462 PHARYNGITIS 04/28/2011 [facility] 788.1 pain during urination (dysuria) 04/28/2011 SKY BANKS MD 462 PHARYNGITIS 04/28/2011 SKY BANKS MD 788.1 pain during urination (dysuria) 04/28/2011 SKY BANKS MD 462 PHARYNGITIS 04/28/2011 SKY BANKS MD 788.1 pain during urination (dysuria) 04/28/2011 PRABHU CABRERA APRN A 462 PHARYNGITIS 04/28/2011 PRABHU CABRERA APRN 788.1 pain during urination (dysuria) 06/01/2011 465.9 UPPER RESPIRATORY INFECTION 06/01/2011 VELASQUEZ SARAVIA DO 465.9 UPPER RESPIRATORY INFECTION 06/01/2011 465.9 UPPER RESPIRATORY INFECTION 06/01/2011 [facility] LACKEY 465.9 UPPER RESPIRATORY INFECTION 06/01/2011 SKY BANKS MD 465.9 UPPER RESPIRATORY INFECTION 06/01/2011 SKY BANKS MD 465.9 UPPER RESPIRATORY INFECTION 06/01/2011 PRABHU CABRERA APRN A 465.9 UPPER RESPIRATORY INFECTION 07/21/2011 112.1 CANDIDIASIS VAGINAL 07/21/2011 599.0 URINARY TRACT INFECTION 07/21/2011 VELASQUEZ SARAVIA DO 112.1 CANDIDIASIS VAGINAL 07/21/2011 VELASQUEZ SARAVIA DO 599.0 URINARY TRACT INFECTION 07/21/2011 112.1 CANDIDIASIS VAGINAL 07/21/2011 599.0 URINARY TRACT INFECTION 07/21/2011 [facility], SANNA R 112.1 CANDIDIASIS VAGINAL 07/21/2011 [facility], SANNA R 599.0 URINARY TRACT INFECTION 07/21/2011 SKY BANKS MD 112.1 CANDIDIASIS VAGINAL 07/21/2011 SKY BANKS MD 599.0 URINARY TRACT INFECTION 07/21/2011 SKY BANKS MD 112.1 CANDIDIASIS VAGINAL 07/21/2011 SKY BANKS MD 599.0 URINARY TRACT INFECTION 07/21/2011 PRABHU CABRERA APRN A 112.1 CANDIDIASIS VAGINAL 07/21/2011 PRABHU CABRERA APRN A 599.0 URINARY TRACT INFECTION 08/05/2011 V72.42 TEST POSITIVE RESULT 08/05/2011 VELASUQEZ SARAVIA DO V72.42 TEST POSITIVE RESULT 08/05/2011 V72.42 TEST POSITIVE RESULT 08/05/2011 [facility], SANNA R V72.42 TEST POSITIVE RESULT 08/05/2011 SKY BANKS MD V72.42 TEST POSITIVE RESULT 08/05/2011 SKY BANKS MD V72.42 TEST POSITIVE RESULT 08/05/2011 PRABHU CABRERA APRN A V72.42 TEST POSITIVE RESULT 08/15/2012 VELASQUEZ SARAVIA DO 461.9 SINUSITIS ACUTE 08/15/2012 VELASQUEZ SARAVIA DO 784.91 POSTNASAL DRIP 08/15/2012 461.9 SINUSITIS ACUTE 08/15/2012 784.91 POSTNASAL DRIP 08/15/2012 [facility], SANNA R 461.9 SINUSITIS ACUTE 08/15/2012 [facility], SANNA R 784.91 POSTNASAL DRIP 08/15/2012 SYK BANKS MD 461.9 SINUSITIS ACUTE 08/15/2012 SKY BANKS MD 784.91 POSTNASAL DRIP 08/15/2012 SKY BANKS MD 461.9 SINUSITIS ACUTE 08/15/2012 SKY BANKS MD 784.91 POSTNASAL DRIP 08/15/2012 PRABHU CABRERA APRN A 461.9 SINUSITIS ACUTE 08/15/2012 PRABHU CABRERA APRN A 784.91 POSTNASAL DRIP 01/31/2013 300.00 ANXIETY UNSPEC 01/31/2013 477.0 ALLERGIC RHINITIS DUE TO POLLEN 01/31/2013 [facility], SANNA R 300.00 ANXIETY UNSPEC 01/31/2013 [facility], SANNA R 477.0 ALLERGIC RHINITIS DUE TO POLLEN 01/31/2013 SKY BANKS MD 300.00 ANXIETY UNSPEC 01/31/2013 SKY BANKS MD 477.0 ALLERGIC RHINITIS DUE TO POLLEN 01/31/2013 SKY BANKS MD 300.00 ANXIETY UNSPEC 01/31/2013 SKY BANKS MD 477.0 ALLERGIC RHINITIS DUE TO POLLEN 01/31/2013 PRABHU CABRERA APRN 300.00 ANXIETY UNSPEC 01/31/2013 PRABHU CABRERA APRN 477.0 ALLERGIC RHINITIS DUE TO POLLEN 03/28/2013 [facility], SANNA R 311 DEPRESSIVE DISORDER NOS 03/28/2013 SKY BANKS MD 311 DEPRESSIVE DISORDER NOS 03/28/2013 SKY BANKS MD 311 DEPRESSIVE DISORDER NOS 03/28/2013 PRABHU CABRERA APRN 311 DEPRESSIVE DISORDER NOS 05/21/2013 SKY BANKS MD N 530.81 GERD 05/21/2013 SKY BANKS MD 530.81 GERD 05/21/2013 PRABHU CABRERA APRN 530.81 GERD 12/16/2013 XOCHILT OROZCO MD, Ot 079.99 VIRAL INFECTION NOS 12/16/2013 XOCHILT OROZCO MD, Ot 644.03 THRT KAYLEY LABOR-ANTEPART 12/16/2013 XOCHILT OROZCO MD Ot 647.63 OTH VIRAL DIS-ANTEPARTUM 12/16/2013 XOCHILT OROZCO MD Ot 654.23 PREV DELIVERY, ANTEPARTUM COND 01/20/2014 XOCHILT OROZCO MD, Ot 644.21 EARLY ONSET DELIVERY-DEL 01/20/2014 XOCHILT OROZCO MD, Ot 654.21 PREV DELIVRY W/ OR W/O MENT ANT 01/20/2014 XOCHILT OROZCO MD, Ot V06.1 [id number], COMBINED [ 01/20/2014 XOCHILT OROZCO MD, Ot [...] LIGAMENTS OF UNSP P 01/17/2017 CHAZ AYOUB MD, Ot X58.XXXA EXPOSURE TO OTHER SPECIFIED FACTORS, INI 01/17/2017 CHAZ AYOUB MD, Ot Z3A.24 24 WEEKS GESTATION OF 01/17/2017 CHAZ AYOUB MD, Ot Z87.59 PERSONAL HISTORY OF COMP OF PREG, CHLDBR 04/12/2017 XOCHILT OROZCO MD Ot O34.219 MATERNAL CARE FOR UNSP TYPE SCAR FROM [place] 04/12/2017 XOCHILT OROZCO MD, Ot Z3A.00 WEEKS OF GESTATION OF NOT SPEC 04/13/2017 XOCHILT OROZCO MD, Ot O34.219 MATERNAL CARE FOR UNSP TYPE SCAR FROM MN 04/13/2017 XOCHILT OROZCO MD, Ot Z3A.00 WEEKS OF GESTATION OF NOT SPEC 04/16/2017 VIRY SPENCER DO Ot O34.219 MATERNAL CARE FOR UNSP TYPE SCAR FROM [place] 04/16/2017 VIRY SPENCER DO Ot O47.03 FALSE [...] MATERNAL CARE FOR UNSP TYPE SCAR FROM [place] 05/03/2017 VIRY SPENCER DO Ot O47.03 FALSE LABOR BEFORE 37 COMPLETED WEEKS OF 05/03/2017 VIRY SPENCER DO Ot Z3A.36 36 WEEKS GESTATION OF 02/04/2018 CHAZ AYOUB MD, Ot F32.9 MAJOR DEPRESSIVE DISORDER, SINGLE EPISOD 02/04/2018 CHAZ AYOUB MD, Ot F41.9 ANXIETY DISORDER, UNSPECIFIED 02/04/2018 CHAZ AYOUB MD Ot N39.0 URINARY TRACT INFECTION, SITE NOT SPECIF 02/04/2018 CHAZ AYOUB MD Ot R30.0 DYSURIA 02/04/2018 CHAZ AYOUB MD Ot Z88.6 ALLERGY STATUS TO ANALGESIC AGENT STATUS 02/04/2018 CHAZ AYOUB MD Ot Z91.040 LATEX ALLERGY STATUS 02/04/2018 CHAZ AYOUB MD Ot Z98.890 OTHER SPECIFIED POSTPROCEDURAL STATES 02/06/2018 CHAZ AYOUB MD, Ot F32.9 MAJOR DEPRESSIVE DISORDER, SINGLE EPISOD 02/06/2018 CHAZ AYOUB MD, Ot F41.9 ANXIETY DISORDER, UNSPECIFIED 02/06/2018 CHAZ AYOUB MD Ot N39.0 URINARY TRACT INFECTION, SITE NOT SPECIF 02/06/2018 CHAZ AYOUB MD Ot R30.0 DYSURIA 02/06/2018 CHAZ AYOUB MD Ot Z88.6 ALLERGY STATUS TO ANALGESIC AGENT STATUS 02/06/2018 CHAZ AYOUB MD Ot Z91.040 LATEX ALLERGY STATUS 02/06/2018 CHAZ AYOUB MD Ot Z98.890 OTHER SPECIFIED POSTPROCEDURAL STATES 08/21/2018 SANGITA QUINTERO MD Ot T62.91XA TOXIC EFFECT OF UNSP NOXIOUS SUB EATEN A 08/23/2018 SANGITA QUINTERO MD Ot T62.91XA TOXIC EFFECT OF UNSP NOXIOUS SUB EATEN A 09/06/2018 CHAZ AYOUB MD Ot F32.9 MAJOR DEPRESSIVE DISORDER, SINGLE EPISOD 09/06/2018 CHAZ AYOUB MD Ot F41.9 ANXIETY DISORDER, UNSPECIFIED 09/06/2018 CHAZ AYOUB MD Ot N39.0 URINARY TRACT INFECTION, SITE NOT SPECIF 09/06/2018 CHAZ AYOUB MD Ot R30.0 DYSURIA 09/06/2018 CHAZ AYOUB MD Ot Z88.6 ALLERGY STATUS TO ANALGESIC AGENT STATUS 09/06/2018 CHAZ AYOUB MD Ot Z91.040 LATEX ALLERGY STATUS 09/06/2018 CHAZ AYOUB MD Ot Z98.890 OTHER SPECIFIED POSTPROCEDURAL STATES Procedures Code [place] [address] PSYCH DIAGNOSTIC EVALUATION 03/28/2013 72446 H PYLORI (IN-HOUSE) 05/21/2013 72.9 INSTRUMENT DELIVERY NOS 01/17/2014 74.1 LOW CERVICAL 01/17/2014 64003 IUD REMOVAL 03/12/2014 [id number] EXTRACTION OF POC, LOW CERVICAL, OPEN AP 04/18/2017 Results Test Result Range Methicillin resistant Staphylococcus aureus (MRSA) screening culture - 04/12/17 13:00 Methicillin resistant Staphylococcus aureus (MRSA) screening culture NEG NRG Complete urinalysis with reflex to culture - 04/15/17 21:30 Urine color determination YELLOW NRG Urine clarity determination SLIGHTLY CLOUDY NRG Urine pH measurement by test strip 6 5-9 Specific gravity of urine by test strip 1.015 1.016-1.022 Urine protein assay by test strip, semi-quantitative [...] sediment leukocyte count by microscopy (number/high power field) [HPF] NRG Bacteria detection in urine sediment [...] Automated erythrocyte mean corpuscular hemoglobin concentration measurement (mass/volume) 33 g/dL 32-36 Automated erythrocyte distribution width ratio 12.7 % 10.0- 14.5 Automated blood platelet count (count/volume) 286 10*3/uL [...] Blood monocytes automated count (number/volume) 0.8 10*3 0.0- 1.0 Automated eosinophil count 0.1 10*3/uL 0.0-0.3 Automated blood basophil count (count/volume) 0.0 10*3/uL 0.0-0.1 Blood type T Indirect antibody screen panel - 04/17/17 11:24 ABO+Rh group OP NRG Transfusion band number [id number] NRG Blood group antibody screen NEGATIVE NRG Complete urinalysis with reflex to culture - 02/03/18 00:00 Urine color determination YELLOW NRG Urine clarity determination CLEAR NRG Urine pH measurement by test strip 6.5 5-9 Specific gravity of urine by test strip 1.020 1.016-1.022 Urine protein assay by test strip, semi-quantitative [...] sediment leukocyte count by microscopy (number/high power field) [HPF] NRG Bacteria detection in urine sediment [...] SEE COMMEN NRG COLONY COUNT . NRG Complete blood count (CBC) with automated white blood cell (WBC) differential - 11/16/18 07:45 Blood leukocytes automated count (number/volume) 7.1 10*3/uL 4.3-11.0 Blood erythrocytes automated count (number/volume) 4.45 10*6/uL 4.35-5.85 Venous blood hemoglobin measurement (mass/volume) 12.9 g/dL 11.5-16.0 Blood hematocrit (volume fraction) 39 % 35-52 Automated erythrocyte mean corpuscular volume 87 [foz_us] 80-99 Automated erythrocyte mean corpuscular hemoglobin (mass per erythrocyte) 29 pg 25-34 Automated erythrocyte mean corpuscular hemoglobin concentration measurement (mass/volume) 34 g/dL 32-36 Automated erythrocyte distribution width ratio 13.0 % 10.0- 14.5 Automated blood platelet count (count/volume) 236 10*3/uL 130-400 Automated blood platelet mean volume measurement 10.1 [foz_us] 7.4-10.4 Automated blood neutrophils/100 leukocytes 49 % 42-75 Automated blood lymphocytes/100 leukocytes 41 % 12-44 Blood monocytes/100 leukocytes 7 % 0-12 Automated blood eosinophils/100 leukocytes 2 % 0-10 Automated blood basophils/100 leukocytes 0 % 0-10 Blood neutrophils automated count (number/volume) 3.5 10*3 1.8-7.8 Blood lymphocytes automated count (number/volume) 2.9 10*3 1.0-4.0 Blood monocytes automated count (number/volume) 0.5 10*3 0.0- 1.0 Automated eosinophil count 0.1 10*3/uL 0.0-0.3 Automated blood basophil count (count/volume) 0.0 10*3/uL 0.0-0.1 Blood type T Indirect antibody screen panel - 11/16/18 07:45 ABO+Rh group OP NRG Transfusion band number [id number] NRG Blood group antibody screen NEGATIVE NRG Encounters ACCT No. Visit Date/Time Discharge Status Pt. Type Provider Facility Loc./Unit Complaint [id number] 03/12/2014 14:33:00 03/12/2014 23:59:59 CLS Outpatient PRABHU CABRERA APRN [id number] 05/21/2013 16:09:00 05/21/2013 23:59:59 CLS Outpatient SKY BANKS MD [id number] 05/21/2013 16:09:00 05/21/2013 23:59:59 CLS Outpatient SKY BANKS MD [id number] 03/28/2013 09:56:00 03/28/2013 23:59:59 CLS Outpatient SANNA LACKEY [id number] 08/15/2012 15:24:00 08/15/2012 23:59:59 CLS Outpatient VELASQUEZ SARAVIA DO [id number] 06/11/2012 16:12:00 06/11/2012 23:59:59 CLS Outpatient [id number] 01/31/2013 16:15:00 Document Registration [id number] 08/21/2018 11:27:00 08/21/2018 12:40:00 DIS Emergency SANGITA QUINTERO MD [facility] ER FOOD POISONING [id number] 02/03/2018 23:39:00 02/04/2018 00:57:00 DIS Emergency CHAZ AYOUB MD [facility] ER FEELS LIKE SHE IS PEEING GLASS [id number] 04/17/2017 11:00:00 04/18/2017 09:40:00 DIS Inpatient XOCHILT OROZCO MD [facility] LDRP PREVIOUS C-SCETION, CHOLESTATIS [id number] 04/15/2017 21:15:00 04/16/2017 00:43:00 DIS Outpatient SPENCERVIRY Copeland DO [facility] WSo CONTRACTIONS [id number] 04/12/2017 12:45:00 04/12/2017 14:17:00 DIS Outpatient XOCHILT OROZCO MD [facility] PREOP REPEAT SECTION [id number] 01/27/2017 11:03:00 01/27/2017 23:59:59 CLS Preadmit XOCHILT OROZCO MD [facility] REHAB RT SHLDR NECK PAIN; PELVIC PAIN IN PREG 24 WEEKS [id number] 01/17/2017 09:29:00 01/17/2017 10:45:00 DIS Emergency CHAZ AYOUB MD [facility] ER NECK AND SHOULDER PAIN [id number] 11/02/2014 22:28:00 11/02/2014 22:44:00 DIS Emergency CHAZ AYOUB MD [facility] ER COUGH [id number] 01/17/2014 21:50:00 01/20/2014 18:45:00 DIS Inpatient XOCHILT OROZCO MD [facility] LDRP CTXS/LABOR [id number] 12/15/2013 16:37:00 12/16/2013 07:30:00 DIS Inpatient XOCHILT OROZCO MD [facility] LDRP CONTRACTIONS [id number] 01/14/2013 18:40:00 01/14/2013 23:59:59 CLS Outpatient [id number] 11/16/2018 07:57:00 Document Registration [id number] 10/23/2018 11:40:00 10/23/2018 23:59:59 CLS Outpatient ELIZA GAO
[2018-11-16] MEDS ORDERED: IBUPROFEN TABLET 200 MG TAB PO ONE (13:07)
--- NOTE | 2018-11-16 15:04 | NUR ---
2ND LACTATED RINGERS BAG 1000ML USED
== END 2018-11-16 15:00 | disposition home or self-care (01) ==
LOC: SDC 07:31
PROVIDERS: ATTEND Obstetrics & Gynecology
DX: O00.211 Right ovarian pregnancy with intrauterine pregnancy (principal); O02.1 Missed abortion; N83.11 Corpus luteum cyst of right ovary; N70.11 Chronic salpingitis; N85.8 Other specified noninflammatory disorders of uterus; K21.9 Gastro-esophageal reflux disease without esophagitis
CPT/HCPCS: 36415; 85025; 86850; 86900; 86901; 87081; 88305; 94664

== ENCOUNTER → 2018-11-19 | Outpatient (CLI) | payer SELFPAY ==
[~2018-11-19] MED LIST changes: +ACET-77 PO; +IBUP-844 PO; +OXC5T PO
[2018-11-19 14:33] LABS: HEMOGLOBIN 12.6 G/DL (11.5-16.0); MEAN PLATELET VOLUME 10.4 FL (7.4-10.4); RED CELL DISTRIBUTION WIDTH 12.7 % (10.0-14.5); WHITE BLOOD COUNT 8.9 10^3/uL (4.3-11.0)
== END ==
LOC: LABNPT 14:28
PROVIDERS: ATTEND Obstetrics & Gynecology
DX: O03.9 Complete or unspecified spontaneous abortion without complication (principal)
CPT/HCPCS: 85027